=== PATIENT | male | born 1955 | race Caucasian/White ===

== ENCOUNTER 2018-12-11 00:09 | Observation (INO) | payer MEDICARE, BC ==
[2018-12-11] VITALS (11 sets, daily range): BP systolic 115–162; BP diastolic 66–91
[~2018-12-11] VITALS: Ht 180.3 cm; Wt 79.4 kg
[~2018-12-11 00:09] MED LIST: ACETAMINOPHEN 500 MG TAB PO ONE; FLUO40CR3 TP; LOSA50TA80 PO; PREGABALIN 150 MG CAPSULE PO ONE
[2018-12-11] MEDS ORDERED: PREGABALIN 150 MG CAPSULE PO ONE (05:40)
[2018-12-11] MEDS ORDERED: ACETAMINOPHEN 500 MG TAB PO ONE (05:40)
[2018-12-11] MEDS ORDERED: ROPIVACAINE 0.2% 400 MG/200ML 250 ML CONINFUS ONE (06:15)
[2018-12-11] MEDS ORDERED: TRANEXAMIC AC 1000 MG/10ML SDV 1,000 MG in DEXTROSE 5% 50 ML BAG 50 ML IV ONE (06:15)
[2018-12-11] MEDS ORDERED: MIDAZOLAM 2 MG/2 ML VIAL IVP PRN (06:15)
[2018-12-11] MEDS ORDERED: FAMOTIDINE 20 MG TAB PO ONE (06:15)
[2018-12-11] MEDS ORDERED: ROPIVACAINE/EPI/CLONIDINE/KET 50 ML SYRINGE INJ ONE (06:15)
[2018-12-11] MEDS ORDERED: NORMOSOL R SOLN(*) 1000 ML BAG 1,000 ML IV PRN ×2 (06:15→09:35)
[2018-12-11] MEDS ORDERED: LIDOCAINE/SOD BICARB 8.4% SYR ID ONE (06:15)
[2018-12-11 06:17] LABS: INR 1.01
[2018-12-11] MEDS ORDERED: ceFAZolin(*) 2GM/D5W 50ML 50 ML IVPB ONE (06:45)
[2018-12-11] MEDS ORDERED: BUPIV/EPI 0.25% 1:200,000 50ML INFIL ONE (06:56)
[2018-12-11] MEDS ORDERED: LIDOCAINE MPF 1% 5 ML VIAL ONE (06:59)
[2018-12-11] MEDS ORDERED: fentaNYL CITR 100 MCG/2 ML AMP ONE ×2 (06:59→09:32)
[2018-12-11] MEDS ORDERED: ONDANSETRON 4 MG/2 ML VIAL ONE (06:59)
[2018-12-11] MEDS ORDERED: KETAMINE HCL-NS 50 MG/5 ML SYR ONE (06:59)
[2018-12-11] MEDS ORDERED: DEXAMETHASONE SOD PHOS 10MG/ML ONE (06:59)
[2018-12-11] MEDS ORDERED: PROPOFOL EMUL(*) 10MG/ML 20 ML 20 ML ONE (06:59)
[2018-12-11] MEDS ORDERED: MIDAZOLAM 2 MG/2 ML VIAL ONE (07:03)
[2018-12-11] MEDS ORDERED: ePHEDrine 25 MG/5 ML DISP.SYR IVP ONE (07:39)
[2018-12-11] MEDS ORDERED: LACTATED RINGER 3000 ML BAG IR ONE (08:02)
[2018-12-11] MEDS ORDERED: LABETALOL HCL 20 MG/4 ML SYR ONE (08:02)
[2018-12-11] MEDS ORDERED: WATER STERILE FOR IRRIG 1000ML IR ONE (08:02)
[2018-12-11] MEDS ORDERED: NS 0.9% IRRIGATION 1000ML PLCT IR ONE (08:03)
[2018-12-11] MEDS ORDERED: MORPHINE 4 MG/ML SDV IVP PRN (09:35)
[2018-12-11] MEDS ORDERED: ZOLPIDEM TARTRATE 5 MG TAB PO PRN (09:35)
[2018-12-11] MEDS ORDERED: BISACODYL 10 MG SUPP PR PRN (09:35)
[2018-12-11] MEDS ORDERED: ONDANSETRON 4 MG/2 ML VIAL IVP PRN (09:35)
[2018-12-11] MEDS ORDERED: MAGNESIUM HYDROXIDE* 30ML UDCP PO PRN (09:35)
[2018-12-11] MEDS ORDERED: PROMETHAZINE 25 MG/ML 1 ML AMP IVP PRN (09:35)
[2018-12-11] MEDS ORDERED: FLUSH 10 ML SYR IVP PRN (09:35)
[2018-12-11] MEDS ORDERED: traMADol 50 MG TAB PO PRN (09:40)
--- NOTE | 2018-12-11 10:38 | RADIOLOGY IMAGING REPORT ---
FACILITY: [facility] - [place] PATIENT NAME: Clay Stacy : 1955 MR: [id number] V: [id number] EXAM DATE: ORDERING PHYSICIAN: CHELO DODSON TECHNOLOGIST: Location: [facility] - [place] Patient: Clay Stacy : 1955 Visit/Account:[id number] Date of Sevice: 12/11/2018 ADDENDUM #1 Addendum: For clarification, there are 2 views submitted. Report Dictated By: Brian Rae MD at 12/22/2018 8:35 AM Report E-Signed By: Brian Rae MD at 12/22/2018 8:35 AM ORIGINAL REPORT Left knee Indication: Postoperative Comparison: None available Findings: 3 views left knee were obtained. Two views left knee demonstrate anatomic alignment status post left total knee arthroplasty. Expecte d soft tissue changes. No unexpected osseous finding. IMPRESSION: 1. Anatomic alignment status post left total knee arthroplasty. Report Dictated By: Brian Rae MD at 12/11/2018 10:33 AM Report E-Signed By: Brian Rae MD at 12/11/2018 10:33 AM WSN:[id number]
--- NOTE | 2018-12-11 10:47 | OPERATIVE REPORT 1 ---
EVENT DATE: December 11, 2018 SURGEON: Manuelito Suarez MD ANESTHESIOLOGIST: Ino Dozier MD ANESTHESIA: Left inguinal adductor block followed by general anesthesia. 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 POSTOPERATIVE DIAGNOSIS Left knee degenerative joint disease with mild flexion contracture and valgus alignment. PROCEDURE PERFORMED Left total knee arthroplasty. IMPLANTS MicroPort medial pivot CS system with a 5 femur, 6+ tibia, 12 mm CS insert, 35 x 8 symmetric patella, femur cut 6 degrees valgus, 10 mm. We utilized two packages of [employer] [place] Blue cement and ZipLine Wound Closure System. SPECIMENS None. COMPLICATIONS None. BLOOD LOSS Less than 30 cc. OPERATION The patient was brought to the OR after receiving appropriate preoperative antibiotic and Dr. Dozier performed left adductor block followed by anesthesia. Left thigh tourniquet was placed. Left lower extremity prepped and draped in the usual sterile fashion. Midline incision was made followed by a medial parapatellar arthrotomy. I dissected subperiosteally along the medial tibial plateau to the level of the semimembranosus insertion. Fat pad was excised patella released and everted. We noted eburnation of the lateral compartment and moderate changes in patellofemoral compartment. The knee was flexed, appropriate retractors placed. The remaining articular cartilage was removed from the distal femoral condyles by sagittal saw and then step cut drill utilized to broach the femoral canal. Distal femoral alignment guide positioned, setting the cutting block up at 10 mm, 6 degrees valgus. This was pinned into place, the retractors placed and cut made. 3-degree external rotation guide incisor was then positioned, referencing off the epicondyles, posterior condyles and anterior flange. This was sized to a #5, holes drilled. #5 four-in-one cutting block positioned followed by Z-retractors. Four cuts made. Tibia was brought anteriorly on the femur with appropriate retractors and step cut drill was utilized to broach the tibial canal. Intramedullary tibial guide was then positioned, referencing 4 mm off the tibial plateau, which corrected to 2 mm off the medial tibial plateau. We pinned the block into place after referencing for rotation. Appropriate retractors were placed, tibial cut made. This was sized to 6+. Stump of the ACL and PCL and medial and lateral meniscus were removed by Bovie. Posterior osteophytes were removed by curved osteotome. The capsule was elevated posteriorly with Choi elevator. Trial tibial base plate was then positioned, referencing 3 degrees rotation and pinned into place. We started with a 10 mm insert and then our femur, then moving up to 12 mm insert. This gave us full extension, flexion of 140 degrees, stability to varus and valgus stress at 90 degrees. Anterior drawer was satisfactory. We then placed the knee in full extension. Patella was sized to 26 mm. Utilizing 8 mm guide, this was cut down to 18 mm. Peg hole guide positioned inferiorly and medially. Peg hole was drilled for 35 x 8. This was placed. The knee was brought up into flexion. Peg hole was drilled for the femur and bone cut for the chip, which was then placed. Again, we had the aforementioned range of motion and stability and patella tracked well. Patellofemoral and tibial insert were removed. Appropriate retractors were placed and tibial tower was then positioned. We cut, reamed and punched through the keel and this was all removed. Bone plug was placed in the distal femur. We copiously irrigated by pulse lavage. We mixed two packages of [employer] [place] Blue cement. We then injected 10 cc of ropivacaine cocktail into the posterior capsule. The knee was brought into flexion, appropriate retractors placed and we irrigated the bone. Starting at the tibia, this was cemented into place. 12 mm CS insert was then placed and then our femur. Excess cement was removed, knee placed in full extension with axial compression while we cemented patella. It took 12-1/2 minutes for the cement to cure. While this was occurring, we reinjected the remaining cocktail into the distal quad mechanism, copiously irrigated by pulse lavage. The knee was then placed, again, after the cement had cured. We had the aforementioned range of motion, stability and patella tracking. The knee was placed in 30 degrees. Arthrotomy was closed with 2-0 Vicryl in [id number] suture fashion followed by 2-0 Vicryl for the subcutaneous tissues and we then cleaned the wounds, placed the knee in 45 degrees and applied our ZipLine Wound Closure System. Compressive dressing was then applied. The patient was extubated and taken to recovery in stable condition. Hospitalist team to be consulted for medical management and anticoagulation, PT and OT for rehab. JARADD
[2018-12-11] MEDS: oxyCODONE HCL 5 MG CAP PO PRN (10:51)
--- NOTE | 2018-12-11 11:29 | Hospitalist Consultation ---
History of Present Illness Requesting Physician Dr. Suarez Reason for Consult Hypertension Chief Complaint s/p left knee replacement History of Present Illness He was admitted s/p left knee replacement. It is reported the surgery went well and without complication. History Problems: (1) Hypertension Status: Chronic Home Meds Reported Medications Fluorouracil (FLUOROURACIL) 40 Gm Cream..g., 40 GM TP PRN 12/04/18 Losartan Potassium (LOSARTAN POTASSIUM) 50 Mg Tablet, 50 MG PO QAM 12/04/18 Allergies: Coded Allergies: Sulfa (Sulfonamide Antibiotics) (Verified Allergy, Intermediate, NAUSEA, RASH, TEMPERATURE, TACKYCARDIA, 12/04/18) Patient History: FH: heart disease FATHER MOTHER FHx: diabetes mellitus BROTHER OR SISTER Hx Smoking: No Caffeine Intake: Coffee Caffeine/Cups Per Day: 2 CPD Hx Alcohol Use: Yes (WINE/BEER DAILY) Hx Substance Use Disorder: No Social Drug Use: Never Review of Systems All Systems Reviewed/Normal: Yes, Except as Noted Exam Vital Signs Vital Signs Date Time Temp Pulse Resp B/P (MAP) Pulse Ox O2 Delivery O2 Flow Rate FiO2 12/11/18 10:40 69 12 98 12/11/18 06:51 97.3 162/91 (114) Room Air General Appearance: Alert, Awake, No Acute Distress, Afebrile Neuro: No Gross deficits Cardiovascular: Regular Rate and Rhythm Respiratory: No Respiratory Distress, Clear to Auscultation Psych: Alert & Oriented X3, Appropriate Mood & Affect Assessment and Plan Problems: (1) Status post left knee replacement Status: Acute Assessment & Plan: Followed by Dr. Suarez. He will be started on Aspirin 325mg for DVT prophylaxis. He has no history of DVT or PE. (2) Hypertension Status: Chronic Assessment & Plan: He is on chronic treatment with Losartan. This has been restarted with hold parameters. Venous Thromboembolism Antithrombotics Is Pt On Any Antithrombotics?: No Problem Qualifiers (1) Hypertension: Hypertension type: essential hypertension Qualified Codes: I10 - Essential (primary) hypertension MARTINA CORONELP Dec 11, 2018 11:29
--- NOTE | 2018-12-11 14:50 | NUR ---
Physical Therapy Impression PT eval completed. Pt tolerated ambulation to/from doorway with FWW and SBA/CGA. Transfers with SBA/CGA as well. Pt fitted with CPM and left on a running at 0-35 degrees. Physical Therapy Goals 1. Pt to be Modified indep with supine to/from sit transfers and bed mobility 2. Pt to be modified indep with sit to/from stand transfers 3. Pt to ambulate x 100' with least restrictive device and modified indep 4. Pt to fanny up/down steps to simulate entry to home with modified indep/SBA Patient's Goals
[2018-12-11] MEDS: ceFAZolin(*) 1 GM VIAL 1 GM in NS(*) 0.9% 100 ML ADDVANT BAG 100 ML IVPB SCH (16:40)
[2018-12-11] MEDS: ACETAMINOPHEN 500 MG TAB PO SCH (17:23)
[2018-12-12 00:54] VITALS: BP 131/70
[2018-12-12] MEDS: ACETAMINOPHEN 500 MG TAB PO SCH ×3 (00:56→16:51)
[2018-12-12] MEDS: ceFAZolin(*) 1 GM VIAL 1 GM in NS(*) 0.9% 100 ML ADDVANT BAG 100 ML IVPB SCH ×2 (00:57→10:20)
[2018-12-12 07:10] VITALS: BP 131/80
--- NOTE | 2018-12-12 08:03 | Hospitalist Progress Note ---
Subjective Progress Notes Subjective He was admitted after knee replacement. He has no complaints this morning. He had no acute events overnight. Patient Complains of: Cardiovascular: No: Chest Pain Respiratory: No: Shortness of Breath Physical Exam Vital Signs Date Time Temp Pulse Resp B/P (MAP) Pulse Ox O2 Delivery O2 Flow Rate FiO2 12/12/18 07:10 98.1 60 16 131/80 (97) 93 Room Air 12/12/18 00:54 1.0 Intake and Output 12/12/18 06:59 Intake Total 2740 ml Balance 2740 ml Intake Oral 940 ml IV Total 1800 ml # Voids 3 General Appearance: Alert, Awake, No Acute Distress, Afebrile Neuro: No Gross deficits Cardiovascular: Regular Rate and Rhythm Respiratory: No Respiratory Distress, Clear to Auscultation GI: Soft and Non-Tender Psych: Alert & Oriented X3, Appropriate Mood & Affect Assessment and Plan Problems: (1) Status post left knee replacement Status: Acute Assessment & Plan: Followed by Dr. Suarez. He will be started on Aspirin 325mg for DVT prophylaxis. He has no history of DVT or PE. (2) Hypertension Status: Chronic Assessment & Plan: He is on chronic treatment with Losartan. This has been restarted with hold parameters. Exam Sepsis Risk: No Definite Risk Problem Qualifiers (1) Hypertension: Hypertension type: essential hypertension Qualified Codes: I10 - Essential (primary) hypertension MARTINA CORONEL Dec 12, 2018 08:03
--- NOTE | 2018-12-12 08:47 | NUR ---
Physical Therapy Impression Pt progressing well with functional mobility and is demonstrating good pain control. SBA for transfers and ambulation x100' with use of RW. Pt reports that he would like to practice stairs this afternoon, and would like to d/c home in the AM. Physical Therapy Goals Patient's Goals
[2018-12-12] MEDS: LOSARTAN POTASSIUM 50 MG TAB PO SCH (09:00)
[2018-12-12] MEDS: ASPIRIN 325 MG TAB PO SCH (10:19)
[2018-12-12 11:01] VITALS: BP 154/83
[2018-12-12 11:02] VITALS: Ht 180.3 cm; Wt 79.4 kg
--- NOTE | 2018-12-12 13:30 | NUR ---
Physical Therapy Impression The patient has met all PT goals and is safe to d/c home from a mobility stand point when medically appropriate. PT provided verbal and visual instruction for stair negotiation with use of axillary crutches with pt demonstrating improved tolerance with repetition. Pt instructed in ther-ex progression with good tolerance. No further PT visits planned at this time, pt plans to d/c home with OP PT services. Physical Therapy Goals Patient's Goals
[2018-12-12 15:55] VITALS: BP 130/75
[2018-12-12 18:43] VITALS: BP 148/87
[2018-12-12] MEDS: KETOROLAC TROM 10MG TAB PO PRN (21:52)
[2018-12-12] MEDS: oxyCODONE HCL 5 MG CAP PO PRN (23:04)
[2018-12-13] MEDS: ACETAMINOPHEN 500 MG TAB PO SCH ×2 (01:51→08:26)
[2018-12-13 01:54] VITALS: BP 151/85
[2018-12-13] MEDS: oxyCODONE HCL 5 MG CAP PO PRN ×3 (03:07→10:09)
[2018-12-13 07:10] VITALS: BP 169/83
[2018-12-13] MEDS: LOSARTAN POTASSIUM 50 MG TAB PO SCH (07:17)
[2018-12-13] MEDS ORDERED: ASPI-757 PO (08:00)
[2018-12-13] MEDS: ASPIRIN 325 MG TAB PO SCH (08:26)
--- NOTE | 2018-12-13 08:38 | Hospitalist Progress Note ---
Subjective Progress Notes Subjective He was admitted after knee replacement. He has no complaints this morning. He would like to go home today. Patient Complains of: Cardiovascular: No: Chest Pain Respiratory: No: Shortness of Breath Physical Exam Vital Signs Date Time Temp Pulse Resp B/P (MAP) Pulse Ox O2 Delivery O2 Flow Rate FiO2 12/13/18 07:10 98.1 81 18 169/83 (111) 92 Room Air 12/12/18 20:00 2.0 Intake and Output 12/13/18 07:00 Intake Total 1276 ml Balance 1276 ml Intake Oral 1276 ml # Voids 1 General Appearance: Alert, Awake, No Acute Distress, Afebrile Neuro: No Gross deficits Cardiovascular: Regular Rate and Rhythm Respiratory: No Respiratory Distress, Clear to Auscultation GI: Soft and Non-Tender Psych: Alert & Oriented X3, Appropriate Mood & Affect Assessment and Plan Problems: (1) Status post left knee replacement Status: Acute Assessment & Plan: Followed by Dr. Suarez. He will be started on Aspirin 325mg for DVT prophylaxis. He has no history of DVT or PE. (2) Hypertension Status: Chronic Assessment & Plan: He is on chronic treatment with Losartan. This was restarted with hold parameters. Exam Sepsis Risk: No Definite Risk Problem Qualifiers (1) Hypertension: Hypertension type: essential hypertension Qualified Codes: I10 - Essential (primary) hypertension MARTINA CORONEL Dec 13, 2018 08:38
[2018-12-13] MEDS ORDERED: OXYC5TAB38 PO (08:47)
[2018-12-13] MEDS ORDERED: KET10 PO (08:48)
[2018-12-13] MEDS ORDERED: TRAM-420 PO (08:49)
[2018-12-13 10:07] VITALS: BP 142/75
[2018-12-13] MEDS: KETOROLAC TROM 10MG TAB PO PRN (10:09)
--- NOTE | 2018-12-13 12:53 | NUR ---
Physical Therapy Impression Pt safe for DC when medically appropriate. Physical Therapy Goals 1. Pt to be Modified indep with supine to/from sit transfers and bed mobility 2. Pt to be modified indep with sit to/from stand transfers 3. Pt to ambulate x 100' with least restrictive device and modified indep/SBA 4. Pt to fanny up/down steps to simulate entry to home with modified indep/SBA Patient's Goals
== END 2018-12-13 08:51 | disposition home or self-care (01) ==
LOC: OR 00:09 → MED 10:40
PROVIDERS: ADMIT Orthopaedic Surgery; ATTEND Orthopaedic Surgery
DX: M17.12 Unilateral primary osteoarthritis, left knee (principal); I10 Essential (primary) hypertension; Z88.2 Allergy status to sulfonamides
CPT/HCPCS: 27447; 36415; 73560; 76942; 85610; 86850; 86900; 86901; 97110; 97116; 97161; 97530; A9270; C1713; C1776; G0378; J0690; J1100; J2001; J2250; J2370; J2405; J2704; J2795; J3010; J3490; J7050; J7060